=== PATIENT | male | born 1945 | race Caucasian/White ===

== ENCOUNTER 2022-02-26 23:06 | Inpatient (IN) | payer MEDICARE, OTHER ==
[~2022-02-26] VITALS: Ht 172.7 cm; Wt 48.1 kg
[2022-02-27 03:50] VITALS: BP 140/72
--- NOTE | 2022-02-27 03:50 | NUR ---
RN NOTE: ADMITTED A 76-Y/O, MALE, PT CAME FROM [facility] INITIALLY PT CAME FROM HOME. ADMITTED ON A 5150 HOLD FOR DTS/DTO/GD. PER HOLD, PATIENT WAS BANGING ON DOORS, WITH INCOHERENT YELLING AND THREATENING HIS NEIGHBORS FOR WHICH [employer] RESPONDED SEVERAL CALLS. UPON FACE TO FACE EVALUATION, PATIENT IS ALERT AND ORIENTED X2, PT. IS COOPERATIVE TO CARE, GUARDED, FLAT AFFECT. SKIN ASSESSMENT DONE. PT UNABLE TO SIGN ADMISSION PAPERWORK DUE TO CONFUSION. ALL BELONGINGS WERE SCREENED FOR CONTRABAND. PATIENT'S RIGHTS WERE DISCUSSED AND BOOKLET WAS GIVEN. CONTACTED DR. COTTON AND HOSPITALIST MARIN ORNELAS INFORMED THEM OF THE ADMISSION. BED IN LOWEST POSITION, LOCKED. SAFETY PRECAUTIONS MAINTAINED. WILL CONTINUE TO MONITOR Q15 MINS FOR MOOD, SAFETY AND BEHAVIOR. MARIN ORNELAS NOTIFIED THAT PATIENT HAS A HISTORY OF SKIN FLAP IN HIS THROAT. PATIENT IS ON LIQUID DIET UNTIL SEEN BY SPEECH THERAPY.
[2022-02-27] MEDS ORDERED: MAGNESIUM HYDROXIDE 30 ML UDC PO PRN (04:30)
[2022-02-27] MEDS ORDERED: MAG HYDROX/AL HYDROX/SIMETH 30 ML UDC PO PRN (04:30)
[2022-02-27] MEDS ORDERED: BLOOD SUGAR DIAGNOSTIC 1 EACH STRIP IN ONE (04:30)
[2022-02-27] MEDS ORDERED: ACETAMINOPHEN 325 MG TABLET PO PRN (04:30)
[2022-02-27] MEDS ORDERED: BENZ2TAB7 PO (04:49)
[2022-02-27] MEDS ORDERED: PERP4TAB11 PO (04:49)
[2022-02-27] MEDS ORDERED: TAMS-12 PO (04:49)
[2022-02-27 07:11] LABS: ALBUMIN 2.7 g/dL (3.4-5.0); BILIRUBIN,TOTAL 0.8 mg/dL (0.2-1.0); CALCIUM, SERUM 9.3 mg/dL (8.5-10.1); CREATININE 0.9 mg/dL (0.6-1.3)
[2022-02-27 08:00] VITALS: BP 140/76
--- NOTE | 2022-02-27 11:00 | NUR ---
ABE Initial Discharge Plan: Patient currently resides at [address] [place] [address]; ([phone]). ABE will contact pt's sister Sravani ([phone]) to discuss treatment/discharge plan. ABE will work with the MD, family, and pt to help coordinate treatment plan.
--- NOTE | 2022-02-27 11:00 | NUR ---
ABE Clinical Note: Pt placed on a 5150 hold for danger to himself, danger to others, and GD. Pt has been confused. Pt has been yelling and screaming. Pt has been banging on neighbors doors. Patient currently resides at [address] [place] [address]; ([phone]). ABE will contact pt's sister Sravani ([phone]) to discuss treatment/discharge plan.
--- NOTE | 2022-02-27 11:03 | NUR ---
Treatment Plan: Pt very confused and unable to sign treatment plan.
[2022-02-27] MEDS: ENSURE ENLIVE 237 ML LIQUID (VANILLA) PO SCH ×2 (13:11→17:00)
[2022-02-27] MEDS: OLANZAPINE 2.5 MG TABLET PO SCH ×2 (13:13→17:00)
--- NOTE | 2022-02-27 13:38 | NUR ---
SW Family Contact: SW contact pt's sister Sravani ([phone]) to gather collateral. Sister discussed about pt's well being at home. She stated that pt is unable to remember when he should take his medications and is unable to care for himself. Pt lives at home alone. SW recommended senior care and sister stated that pt would possibly need a SNF. She was agreeable of this.
[2022-02-27 16:00] VITALS: BP 103/62
[2022-02-27 20:07] VITALS: BP 117/64
[2022-02-27] MEDS: TAMSULOSIN 0.4 MG CAP.SR.24H PO SCH (21:35)
--- NOTE | 2022-02-28 07:25 | NUR ---
GPS RN NOTES RECEIVED PATIENT AWAKE IN BED, AOX1-2, PATIENT APPEARS NERVOUS, CACHECTIC, NOT IN ANY S/SX OF APPARENT ACUTE DISTRESS. DENIES PAIN NOR DISCOMFORT. SAFETY MEASURES IN PLACE: BED IN LOWEST AND LOCKED POSITION, SIDE RAILS UP 2X, WILL CONTINUE TO MONITOR FOR CHANGES DURING MY SHIFT.
[2022-02-28 08:00] VITALS: BP 110/72
[2022-02-28] MEDS: OLANZAPINE 2.5 MG TABLET PO SCH ×3 (09:23→17:24)
[2022-02-28] MEDS: ENSURE ENLIVE 237 ML LIQUID (VANILLA) PO SCH ×3 (09:23→17:24)
[2022-02-28] MEDS: BENZTROPINE MESYLATE (1 MG) 1 MG TABLET PO SCH (09:23)
--- NOTE | 2022-02-28 10:00 | NUR ---
GPS RN NOTES - PATIENT WAS SEEN BY SPEECH THERAPIST, PATIENT IS ABLE TO SWALLOW WITHOUT ANY DIFFICULTY.
[2022-02-28 16:00] VITALS: BP 125/69
--- NOTE | 2022-02-28 16:24 | NUR ---
GPS RN NOTES - URINE SAMPLE TAKEN, CALLED LAB TO LONG WALL MINING MACHINE TENDER.
[2022-02-28 17:12] LABS: BILIRUBIN,URINE NEGATIVE (NEGATIVE); COLOR,URINE YELLOW (YELLOW); LEUKOCYTE ESTERASE ,URINE NEGATIVE (NEGATIVE); NITRITE, URINE NEGATIVE (NEGATIVE); PROTEIN,URINE NEGATIVE (NEGATIVE); UGLUCOSE NEGATIVE (NEGATIVE); UROBILINOGEN,URINE 0.2 EU/dL (0.2)
[2022-02-28 17:39] LABS: BACTERIA,URINE None seen /HPF (None Seen); MUCUS,URINE Few /LPF (None Seen); RBC,URINE 0-2 /HPF (0-2); SQUAMOUS EPITHELIAL CELL,UR 0-2 /HPF (None Seen); WBC,URINE 0-2 /HPF (0-3)
--- NOTE | 2022-02-28 18:55 | NUR ---
GPS RN CLOSING NOTES - PATIENT BEING TRANSFERRED BACK TO BED BY GLOBAL EXPANSION SALES DIRECTOR, PT DID A LOT OF SOCIALIZING TODAY, CALM, AOX1-2, NO S/SX OF RESPIRATORY DISTRESS, NO COMPLAINTS OF PAIN NOR ANY DISCOMFORT. ALL NEEDS MET, ALL MEDS GIVEN. WILL ENDORSE TO MATH TUTOR NURSE.
--- NOTE | 2022-02-28 20:00 | NUR ---
GPS PICK UP WORKER INITIAL NOTES RECEIVED REPORT FROM AM NURSE AND SEEN PT IN BED RESTING WITH EYES CLOSED BUT AROUSE EASILY. NO SIGNS OF AGITATION OR ANY DISTRESS NOTED. KEPT HIM WARM AND COMFORTABLE AT ALL TIMES. BED IN LOW AND LOCK IN POSITION WITH SIDE RAILS X2UP AND BED ALARM SET FOR SAFETY. WILL CONTINUE MONITORING .
[2022-02-28 20:44] VITALS: BP 119/71
[2022-02-28] MEDS: TAMSULOSIN 0.4 MG CAP.SR.24H PO SCH (21:57)
--- NOTE | 2022-03-01 06:34 | NUR ---
GPS CLOSING NOTES PT ASLEEP NOT IN ANY ACUTE DISTRESS NOTED. ALL DUE MEDS GIVEN LAST NIGHT. NO ASPIRATION NOTED. PT SOME CONFUSION NOTED WHEN HE WOKE UP. STABLE THROUGHOUT THE NIGHT. KEPT HIM WARM AND COMFORTABLE AT ALL TIMES. BED IN LOW AND LOCK IN POSITION WITH SIDE RAILS X2 UP AND BED ALARM SET FOR SAFETY. WILL ENDORSE TO AM NURSE FOR CONTINUITY OF CARE.
[2022-03-01 08:00] VITALS: BP 127/74
[2022-03-01] MEDS: ENSURE ENLIVE 237 ML LIQUID (VANILLA) PO SCH ×3 (08:44→16:46)
[2022-03-01] MEDS: BENZTROPINE MESYLATE (1 MG) 1 MG TABLET PO SCH (08:45)
[2022-03-01] MEDS: OLANZAPINE 2.5 MG TABLET PO SCH ×4 (08:45→21:18)
--- NOTE | 2022-03-01 09:40 | NUR ---
Court Notification: SW contacted pt's sister Sravani ([phone]) of [phone] hearing. SW left a detailed voicemail.
--- NOTE | 2022-03-01 09:41 | NUR ---
Court Hearing: Patient's court hearing for 2850 was today and it was upheld for GD.
--- NOTE | 2022-03-01 12:09 | NUR ---
ABE Referral: ABE sent clinicals to Lizett ([phone]) from [facility] for placement. SW sent H & P, progress notes, and medication list.
[2022-03-01 16:00] VITALS: BP 117/73
[2022-03-01 20:00] VITALS: BP 123/66
[2022-03-01] MEDS: TAMSULOSIN 0.4 MG CAP.SR.24H PO SCH (21:18)
--- NOTE | 2022-03-02 05:37 | NUR ---
END OF SHIFT REPORT Patient slept most of the night. No respiratory distress during the shift. Calm, no agitated behavior. Compliant with medication. Cont plan of care. Will endorse to oncoming RN.
[2022-03-02 08:00] VITALS: BP 115/68
[2022-03-02] MEDS: OLANZAPINE 2.5 MG TABLET PO SCH ×4 (08:27→21:12)
[2022-03-02] MEDS: BENZTROPINE MESYLATE (1 MG) 1 MG TABLET PO SCH (08:27)
[2022-03-02] MEDS: ENSURE ENLIVE 237 ML LIQUID (VANILLA) PO SCH ×3 (08:28→17:13)
[2022-03-02 16:09] VITALS: BP_SYST 138; BP_SYST 161; BP_DIAS 69; BP_DIAS 99
[2022-03-02 20:46] VITALS: BP 128/69
[2022-03-02] MEDS: TEMAZEPAM 7.5 MG CAPSULE PO PRN (21:12)
[2022-03-02] MEDS: TAMSULOSIN 0.4 MG CAP.SR.24H PO SCH (21:12)
[2022-03-02] MEDS: LORAZEPAM 0.5 MG TABLET PO PRN ×2 (21:13→21:51)
--- NOTE | 2022-03-02 21:51 | NUR ---
RN NOTE; PT REFUSED TO TAKE ATIVAN 0.5MG,DON'T NEED IT.
[2022-03-03 08:00] VITALS: BP 120/65
[2022-03-03] MEDS: OLANZAPINE 2.5 MG TABLET PO SCH ×4 (08:21→21:08)
[2022-03-03] MEDS: ENSURE ENLIVE 237 ML LIQUID (VANILLA) PO SCH ×3 (08:21→17:00)
[2022-03-03] MEDS: BENZTROPINE MESYLATE (1 MG) 1 MG TABLET PO SCH (08:21)
[2022-03-03 16:00] VITALS: BP 126/72
--- NOTE | 2022-03-03 18:31 | NUR ---
RN NOTE PATIENT IN BED, AWAKE, VERBALLY RESPONSIVE. NO SIGNS OF ACUTE DISTRESS NOTED. STILL NOTED WITH EPISODES OF TALKING TO SELF. REALITY AWARENESS PROVIDED NEEDED. COMPLIANT WITH MEDS. ASPIRATION PRECAUTIONS OBSERVED. SAFETY MEASURE MAINTAINED. WILL ENDORSE TO NEXT SHIFT FOR CONTINUITY OF CARE.
--- NOTE | 2022-03-03 20:00 | NUR ---
RN NOTE PATIENT REFUSED WEEKLY SKIN ASSESSMENT. EXPLAINED RISKS/BENEFITS. PT CONTINUED TO REFUSE.
[2022-03-03 20:23] VITALS: BP 140/72
[2022-03-03] MEDS: TAMSULOSIN 0.4 MG CAP.SR.24H PO SCH (21:08)
[2022-03-03] MEDS: TEMAZEPAM 7.5 MG CAPSULE PO PRN (22:04)
[2022-03-04 08:00] VITALS: BP 127/71
[2022-03-04] MEDS: OLANZAPINE 2.5 MG TABLET PO SCH ×3 (09:10→16:46)
[2022-03-04] MEDS: ENSURE ENLIVE 237 ML LIQUID (VANILLA) PO SCH ×3 (09:10→16:46)
[2022-03-04] MEDS: BENZTROPINE MESYLATE (1 MG) 1 MG TABLET PO SCH (09:10)
[2022-03-04] MEDS: LORAZEPAM 0.5 MG TABLET PO PRN ×2 (10:25→17:31)
--- NOTE | 2022-03-04 14:58 | NUR ---
SW Contact: SW received a call from Lizett ([phone]) from [facility] who stated pt is accepted.
--- NOTE | 2022-03-04 14:59 | NUR ---
SW Family Contact: SW contact pt's sister Sravani ([phone]) and notified that pt was accepted at [facility] and she was agreeable of this.
[2022-03-04 16:00] VITALS: BP 105/61
--- NOTE | 2022-03-04 18:51 | NUR ---
RN CLOSING NOTES PATIENT IS ALERT X1 , ALL DUE MEDS ORDERED GIVEN , NOTED WITH AGITATION AND ANXIETY AND GIVEN WITH ATIVAN ORDERED AND WITH HELP , ALL NEEDS ATTENDED
[2022-03-04 20:00] VITALS: BP 119/68
[2022-03-04] MEDS: TAMSULOSIN 0.4 MG CAP.SR.24H PO SCH (21:17)
[2022-03-04] MEDS ORDERED: OLANZAPINE 2.5 MG TABLET PO SCH (22:00)
[2022-03-05 08:00] VITALS: BP 100/55
[2022-03-05] MEDS: ENSURE ENLIVE 237 ML LIQUID (VANILLA) PO SCH ×3 (08:34→16:18)
[2022-03-05] MEDS: OLANZAPINE 2.5 MG TABLET PO SCH ×3 (09:40→16:25)
[2022-03-05] MEDS: BENZTROPINE MESYLATE (1 MG) 1 MG TABLET PO SCH (09:40)
[2022-03-05] MEDS: LORAZEPAM 0.5 MG TABLET PO PRN (11:03)
[2022-03-05 16:00] VITALS: BP 121/72
[2022-03-05 20:06] VITALS: BP 138/65
[2022-03-05] MEDS: TAMSULOSIN 0.4 MG CAP.SR.24H PO SCH (21:41)
[2022-03-05] MEDS ORDERED: OLANZAPINE 2.5 MG TABLET PO SCH (22:00)
[2022-03-06] MEDS: LORAZEPAM 0.5 MG TABLET PO PRN (01:34)
[2022-03-06 08:00] VITALS: BP 100/62
[2022-03-06] MEDS: ENSURE ENLIVE 237 ML LIQUID (VANILLA) PO SCH ×3 (08:47→17:05)
[2022-03-06] MEDS: BENZTROPINE MESYLATE (1 MG) 1 MG TABLET PO SCH (08:47)
[2022-03-06] MEDS: OLANZAPINE 2.5 MG TABLET PO SCH ×3 (08:48→16:11)
[2022-03-06 16:00] VITALS: BP 102/71
--- NOTE | 2022-03-06 18:45 | NUR ---
RN NOTE PATIENT IN BED, AWAKE, TALKING TO SELF. NO SIGNS OF ACUTE DISTRESS NOTED. STABLE ON ROOM AIR, BREATHING EVEN AND UNLABORED. ALL DUE MEDS GIVEN, COMPLIANT WITH MEDS. AMBULATORY WITH ASSIST. SAFETY MEASURE MAINTAINED. WILL ENDORSE TO NEXT SHIFT FOR CONTINUITY OF CARE.
[2022-03-06 20:00] VITALS: BP 118/65
[2022-03-06 20:09] VITALS: BP 118/65
[2022-03-06] MEDS: TAMSULOSIN 0.4 MG CAP.SR.24H PO SCH (21:32)
[2022-03-06] MEDS: OLANZAPINE 10 MG TABLET PO SCH (21:32)
[2022-03-07 08:00] VITALS: BP 129/66
[2022-03-07] MEDS: BENZTROPINE MESYLATE (1 MG) 1 MG TABLET PO SCH (09:07)
[2022-03-07] MEDS: OLANZAPINE 2.5 MG TABLET PO SCH ×3 (09:07→16:21)
[2022-03-07] MEDS: ENSURE ENLIVE 237 ML LIQUID (VANILLA) PO SCH ×3 (09:19→16:22)
[2022-03-07 16:00] VITALS: BP 109/56
--- NOTE | 2022-03-07 17:34 | NUR ---
RN-NOTES PATIENT VISIBLE IN THE UNIT ATTENDED GROUP FOR SHORT PERIOD,A/O X2,GUARDED,NO ACUTE DISTRESS NOTED. COMPLIANT WITH MEDICATIONS. PATIENT NEEDS MODERATE ASSIST WITH ADL'S.NOTED PATIENT WITH EPISODE OF TALKING TO SELF AND EASILY IRRITABLE BEHAVIOR. PATIENT ON WHEELCHAIR DUE TO UNSTEADY GAIT. ALL NEEDS ATTENDED AND ANTICIPATED. WILL CONT. MONITORING FOR SAFETY AND BEHAVIOR.WILL ENDORSE TO THE NEXT SHIFT FOR CONTINUITY OF CARE.
[2022-03-07 20:00] VITALS: BP 139/70
--- NOTE | 2022-03-07 20:45 | NUR ---
RN NOTES: RECEIVED PATIENT IN BED RESTING COMFORTABLY. A/OX2. IN NO APPARENT DISTRESS NOTED. PATIENT REMAINS DISORGANIZED, CONFUSED, TALKING TO SELF, . SAFETY PRECAUTIONS MAINTAINED. WILL CONTINUE TO MONITOR Q15MIN ROUNDS FOR SAFETY AND BEHAVIOR.
[2022-03-07] MEDS: TAMSULOSIN 0.4 MG CAP.SR.24H PO SCH (22:00)
[2022-03-07] MEDS: OLANZAPINE 10 MG TABLET PO SCH (22:00)
--- NOTE | 2022-03-08 07:00 | NUR ---
RN OPENING NOTES: PT IN BED ASLEEP. EASILY AROUSED WITH STIMULI. A/OX1 AND ABLE TO MAKE NEEDS KNOWN WITH EPISODES OF CONFUSION, PT KEPT TALKING TO HIMSELF AND LAUGH AT TIMES. NO SOB OR CARDIAC DISTRESS NOTED, DENIES PAIN AT THIS TIME. NO IV ACCES. SAFETY MEASURES MAINTAINED: BED LOCKED AND IN LOWEST POSITION, SIDE RAILS UP X 2. CALL LIGHT AND BED SIDE TABLE IN EASY REACH FOR HELP AND WILL MONITOR ACCORDINGLY.
[2022-03-08 08:00] VITALS: BP 129/83
[2022-03-08] MEDS: ENSURE ENLIVE 237 ML LIQUID (VANILLA) PO SCH ×3 (08:03→17:33)
[2022-03-08] MEDS: BENZTROPINE MESYLATE (1 MG) 1 MG TABLET PO SCH (08:43)
[2022-03-08] MEDS: OLANZAPINE 2.5 MG TABLET PO SCH ×3 (08:43→16:19)
--- NOTE | 2022-03-08 09:48 | NUR ---
APS: SW RECEIVED A CALL FROM APS RUBBER FLAP TUBER MACHINE OPERATOR JARED ([phone]) WHO STATED THAT PT HAS A CASE OPEN FOR SELF-NEGLECT. SHE WOULD WANT TO BE NOTIFIED WHEN PT WILL DISCHARGE.
[2022-03-08 16:00] VITALS: BP 128/72
--- NOTE | 2022-03-08 19:41 | NUR ---
RN NOTES: RECEIVED PATIENT IN BED RESTING COMFORTABLY. A/OX2. IN NO APPARENT DISTRESS NOTED. PATIENT REMAINS,ANXIOUS, DISORGANIZED, CONFUSED,HYPERVERBAL TALKING TO SELF, . SAFETY PRECAUTIONS MAINTAINED. WILL CONTINUE TO MONITOR Q15MIN ROUNDS FOR SAFETY AND BEHAVIOR.
[2022-03-08 20:00] VITALS: BP 138/72
[2022-03-08] MEDS: OLANZAPINE 10 MG TABLET PO SCH (21:06)
[2022-03-08] MEDS: TAMSULOSIN 0.4 MG CAP.SR.24H PO SCH (21:06)
[2022-03-09 08:00] VITALS: BP 136/67
[2022-03-09] MEDS: ENSURE ENLIVE 237 ML LIQUID (VANILLA) PO SCH ×3 (08:26→16:47)
[2022-03-09] MEDS: OLANZAPINE 2.5 MG TABLET PO SCH ×3 (08:37→16:47)
[2022-03-09] MEDS: BENZTROPINE MESYLATE (1 MG) 1 MG TABLET PO SCH (08:37)
[2022-03-09] MEDS: LORAZEPAM 0.5 MG TABLET PO PRN ×2 (09:33→21:05)
--- NOTE | 2022-03-09 09:34 | NUR ---
RN-NOTES NOTED PATIENT WITH CONTINUES TALKING TO SELF ,VERY ANXIOUS. REDIRECTED AND ATIVAN 0.5MG P.O GIVEN PRN ORDER. WILL CONT. MONITORING FOR SAFETY AND BEHAVIOR.
--- NOTE | 2022-03-09 10:35 | NUR ---
RN-NOTES PATIENT SLEEPING EASILY AROUSED, NO ACUTE DISTRESS NOTED.
[2022-03-09 16:00] VITALS: BP 123/70
--- NOTE | 2022-03-09 17:37 | NUR ---
RN-NOTES PATIENT LYING IN BED AWAKE,A/O X2,GUARDED,NOTED WITH EPISODE OF TALKING TO SELF.NO ACUTE DISTRESS NOTED.COMPLIANT WITH MEDICATIONS. PATIENT NEEDS MODERATE ASSIST WITH ADL'S. ALL NEEDS ATTENDED AND ANTICIPATED.WILL CONT. MONITORING FOR SAFETY AND BEHAVIOR.WILL ENDORSE TO INCOMING NURSE FOR THE CONTINUITY OF CARE.
[2022-03-09 20:00] VITALS: BP 114/64
[2022-03-09] MEDS: TAMSULOSIN 0.4 MG CAP.SR.24H PO SCH (21:05)
[2022-03-09] MEDS: OLANZAPINE 10 MG TABLET PO SCH (21:05)
--- NOTE | 2022-03-10 06:07 | NUR ---
END OF SHIFT REPORT Patient in bed, restless at times, impulsive getting out from bed unassisted. Fall risk. Slowly calm with Ativan. No respiratory distress during the shift. Will endorse to oncoming RN.
[2022-03-10] MEDS: ENSURE ENLIVE 237 ML LIQUID (VANILLA) PO SCH ×3 (07:48→17:12)
[2022-03-10 08:00] VITALS: BP 121/68
[2022-03-10] MEDS: OLANZAPINE 2.5 MG TABLET PO SCH ×3 (08:41→17:12)
[2022-03-10] MEDS: BENZTROPINE MESYLATE (1 MG) 1 MG TABLET PO SCH (08:42)
[2022-03-10 16:00] VITALS: BP 93/56
[2022-03-10 20:43] VITALS: BP 136/72
[2022-03-10] MEDS: LORAZEPAM 0.5 MG TABLET PO PRN (21:46)
[2022-03-10] MEDS: OLANZAPINE 10 MG TABLET PO SCH (21:46)
[2022-03-10] MEDS: TAMSULOSIN 0.4 MG CAP.SR.24H PO SCH (21:46)
--- NOTE | 2022-03-11 05:08 | NUR ---
pt refused to have photos to be taken.
[2022-03-11 08:00] VITALS: BP 120/53
[2022-03-11] MEDS: ENSURE ENLIVE 237 ML LIQUID (VANILLA) PO SCH ×3 (08:02→17:02)
[2022-03-11] MEDS: BENZTROPINE MESYLATE (1 MG) 1 MG TABLET PO SCH (09:03)
[2022-03-11] MEDS: OLANZAPINE 2.5 MG TABLET PO SCH ×3 (09:03→16:36)
[2022-03-11 16:00] VITALS: BP 122/77
[2022-03-11] MEDS: LORAZEPAM 0.5 MG TABLET PO PRN (16:21)
--- NOTE | 2022-03-11 16:21 | NUR ---
NURSE NOTE: PT AGITATED, YELLING OUT LOUD. ATIVAN PO ADMIN ORDERED. PT JASON WELL. WILL CONT TO MONITOR.
--- NOTE | 2022-03-11 17:11 | NUR ---
NURSE NOTE: PT CALM AT THIS TIME. NO MORE OUTBURSTS. ATIVAN EFFECTIVE. WILL CONT TO MONITOR.
[2022-03-11 20:02] VITALS: BP 118/64
[2022-03-11] MEDS: TAMSULOSIN 0.4 MG CAP.SR.24H PO SCH (21:22)
[2022-03-11] MEDS: OLANZAPINE 10 MG TABLET PO SCH (21:22)
[2022-03-12 08:00] VITALS: BP 133/57
[2022-03-12] MEDS: OLANZAPINE 2.5 MG TABLET PO SCH ×2 (08:37→16:36)
[2022-03-12] MEDS: BENZTROPINE MESYLATE (1 MG) 1 MG TABLET PO SCH ×2 (08:38→16:36)
[2022-03-12] MEDS: ENSURE ENLIVE 237 ML LIQUID (VANILLA) PO SCH ×3 (08:38→16:36)
--- NOTE | 2022-03-12 09:00 | NUR ---
RN NOTE- PT IN BED, CONFUSED THOUGH DIRECTABLE. NO DISTRESS NOTED AT THIS TIME. ALERT/ORT X2, GUARDED, CONFUSED, INTERNALLY PREOCCUPIED, MED COMPLIANT. NEEDS MODERATE ASSIST WITH ADL'S. PT USES WHEELCHAIR DUE TO UNSTEADY GAIT. PT HAD LARGE BM AND PUT IT ON FLOOR AND BED, ALL NEEDS ATTENDED AND ANTICIPATED. PT IN STABLE COND AT THIS TIME, WILL CONT TO MONITOR FOR SAFETY AND BEHAVIOR.
--- NOTE | 2022-03-12 10:43 | NUR ---
SW Family Contact: SW contact pt's sister Sravani ([phone]) and discussed pt's current situation and is agreeable of pt going to [facility].
[2022-03-12] MEDS ORDERED: OLANZAPINE 2.5 MG TABLET PO ONE (11:30)
[2022-03-12 16:00] VITALS: BP 148/72
[2022-03-12] MEDS: LORAZEPAM 0.5 MG TABLET PO PRN (17:49)
--- NOTE | 2022-03-12 17:50 | NUR ---
RN NOTE- SCREAMING AND OPPOSITIONAL TO CARE. ATIVAN 0.5 MG ADMINISTERED
[2022-03-12 19:47] VITALS: BP 150/93
[2022-03-12] MEDS: OLANZAPINE 10 MG TABLET PO SCH (21:12)
[2022-03-12] MEDS: TAMSULOSIN 0.4 MG CAP.SR.24H PO SCH (21:12)
[2022-03-13] MEDS: ENSURE ENLIVE 237 ML LIQUID (VANILLA) PO SCH ×3 (07:49→16:57)
[2022-03-13 08:00] VITALS: BP 117/66
[2022-03-13] MEDS: BENZTROPINE MESYLATE (1 MG) 1 MG TABLET PO SCH ×2 (09:05→16:56)
[2022-03-13] MEDS: OLANZAPINE 2.5 MG TABLET PO SCH ×2 (09:14→16:57)
[2022-03-13] MEDS: LORAZEPAM 0.5 MG TABLET PO PRN (09:34)
[2022-03-13 16:00] VITALS: BP 149/64
--- NOTE | 2022-03-13 19:10 | NUR ---
RN CLOSING NOTE PT IN BED RESTING, CONFUSED BUT DIRECTABLE. NO DISTRESS NOTED AT THIS TIME. ALERT/ORT X2, CONFUSED BUT PLEASANT TODAY. NEEDS MODERATE ASSIST WITH ADL'S. PT USES WHEELCHAIR DUE TO UNSTEADY GAIT. ALL NEEDS MET AT THIS TIME, WILL ENDORSE MADY TO KETTLE COORDINATOR NURSE
[2022-03-13 20:17] VITALS: BP 125/68
[2022-03-13] MEDS: OLANZAPINE 10 MG TABLET PO SCH (21:00)
[2022-03-13] MEDS: TAMSULOSIN 0.4 MG CAP.SR.24H PO SCH (21:00)
[2022-03-14 08:00] VITALS: BP 135/65
--- NOTE | 2022-03-14 08:07 | NUR ---
SW Discharge Note: Patient will be discharged to [facility] facility [facility] [address], [place] [address]; ). Please arrange transportation at 1PM. [employer] spoke with Lizett rehab therapy manager at [facility]; ([phone], who stated patient will be accepted today. Patients sister Sravani ([phone]) is aware and agreeable. Patient is alert and oriented x3 and is unable to plan for self-care. Patient denies any suicidal or homicidal ideations. Patient is aware and agreeable with discharge plans. Patient will continue to follow-up with (psychiatrist) Dr. Mcgill [address], [place] [address]; ([phone]) and (employee benefits administrator) Dr. Bazzi [address], [place] [address]; ([phone]). Patient presents with euthymic and congruent mood.
[2022-03-14] MEDS: ENSURE ENLIVE 237 ML LIQUID (VANILLA) PO SCH ×2 (08:13→12:24)
--- NOTE | 2022-03-14 08:27 | NUR ---
APS: ABE CONTACTED APS HAM PUMPER JARED ([phone]) AND NOTIFIED OF PT'S DC TODAY TO [facility].
[2022-03-14] MEDS: OLANZAPINE 2.5 MG TABLET PO SCH (08:33)
[2022-03-14] MEDS: BENZTROPINE MESYLATE (1 MG) 1 MG TABLET PO SCH (08:33)
--- NOTE | 2022-03-14 09:47 | NUR ---
Dr. Mcgill gave an order to D/C hold and D/C to [facility] and to follow up with psych and medical doctors. psychiatrist ordered to continue same meds including prn.
--- NOTE | 2022-03-14 13:41 | NUR ---
RN-NOTES PATIENT LYING IN BED AWAKE,A/O X2,CALM,NO ACUTE DISTRESS NOTED.COMPLIANT WITH MEDICATIONS. PATIENT NEEDS MODERATE ASSIST WITH ADL'S. ALL NEEDS ATTENDED AND ANTICIPATED.WILL CONT. MONITORING FOR SAFETY AND BEHAVIOR.PATIENT HAD A PENDING DISCHARGE. ENDORSE TO THE CHARGE NURSE FOR THE DISCHARGE PROCESSING.
--- NOTE | 2022-03-14 14:15 | NUR ---
Left left the unit via ambulance and transported via a gurney with belongings. Left without distress and no agitation noted. Addendum: 03/14/22 at 1425 by BING HARRIS RN Pt. denies suicidal and homicidal and agreeable with the discharge plans. Dr. Bazzi made aware of the discharge and reconciled the meds to continue in the facility. Report was given by the primary the primary nurse to Nishi (PSYCHOLOGICAL OPERATIONS OFFICER).
== END 2022-03-14 14:15 | DRG 885 ==
LOC: GPS 02-27 03:42
PROVIDERS: ADMIT Psychiatry & Neurology Psychosomatic Medicine; ATTEND Internal Medicine
DX: F20.9 Schizophrenia, unspecified (principal); Z68.1 Body mass index [BMI] 19.9 or less, adult; E44.0 Moderate protein-calorie malnutrition; F29 Unspecified psychosis not due to a substance or known physiological condition; F41.9 Anxiety disorder, unspecified; G20 Parkinson's disease; F02.80 Dementia in other diseases classified elsewhere, unspecified severity, without behavioral disturbance, psychotic disturbance, mood disturbance, and anxiety; N40.0 Benign prostatic hyperplasia without lower urinary tract symptoms; Z79.899 Other long term (current) drug therapy; Z73.6 Limitation of activities due to disability; R13.10 Dysphagia, unspecified; Z98.890 Other specified postprocedural states; E86.1 Hypovolemia
CPT/HCPCS: 36415; 80048-TC; 80053-TC; 80061-TC; 81001; 87081-TC; 92526; 92611-TC